=== PATIENT | male | born 1980 | race Caucasian/White ===

== ENCOUNTER 2016-08-01 09:17 | Emergency (ER) | payer OTHER ==
[2016-08-01 09:40] VITALS: BP 144/96; TEMP 97.7; O2SAT 97
--- NOTE | 2016-08-01 09:46 | ED.PDOC ---
History of Present Illness - General Chief Complaint: ENT Problem Stated Complaint: L ear discomfort Time Seen by Provider: 08/01/16 09:42 Source: patient, RN notes reviewed, Vital Signs reviewed Additional Information: Left ear discomfort worse over the past few days. Reports going swimming about 1 to 1 1/2 weeks ago. Denies fever. He does report muffled hearing from left ear. No reported drainage from left ear. - History of Present Illness Timing/Duration: gradual Severity: moderate EENT Location: ear (L) Prearrival Treatment: no prearrival treatment, over the counter meds - motrin Improving Factors: nothing Worsening Factors: nothing Associated Symptoms: other - muffled hearing. Otherwise, no fever, no drainage reported Allergies/Adverse Reactions: Allergies NO KNOWN ALLERGY Allergy (Verified 08/01/16 09:28) Home Medications: Ambulatory Orders Deniz/Poly/Hc Otic Susp [Cortisporin Otic Susp] 4 drop OTIC QID #1 bttl 08/01/16 Review of Systems - Review of Systems Constitutional: States: no symptoms reported EENTM: States: see HPI, ear pain Respiratory: States: no symptoms reported Cardiology: States: no symptoms reported Gastrointestinal/Abdominal: States: no symptoms reported Genitourinary: States: no symptoms reported Musculoskeletal: States: no symptoms reported Skin: States: no symptoms reported Neurological: States: no symptoms reported Endocrine: States: no symptoms reported Hematologic/Lymphatic: States: no symptoms reported Past Medical History (General) - Patient Medical History Hx Stroke: No Hx Congestive Heart Failure: No Hx Diabetes: No Hx MRSA: No - Vaccination History Hx Influenza Vaccination: Yes - 2016 Hx Pneumococcal Vaccination: No - Social History Hx Tobacco Use: No Family Medical History - Family History Father Family History: No Known Living Status: Still Living Physical Exam - Physical Exam General Appearance: Alert, No apparent distress, Well Developed, Well Groomed, Well Hydrated, Well Nourished Eye Exam: right other - mild injection right conjunctiva - no drainage Ear Exam: left ear: other - inflamed canal. no drainage Nasal Exam: normal inspection Throat Exam: normal mouth inspection, pharynx normal Neck: non-tender, full range of motion, supple, normal inspection Cardiovascular/Respiratory: regular rate, rhythm, normal peripheral pulses, normal breath sounds, no respiratory distress Abdominal Exam: non-tender, no organomegaly Neurologic: tube teller II-XII nml as tested, no motor/sensory deficits, alert, normal mood/affect, oriented x 3 Skin Exam: normal color Progress - Progress Progress: 08/01/16 09:58 History and exam consistent with moderate left otitis media. Will treat with topical antibiotic/anti-inflammatory for now. Ok for d/c home with return precautions. Departure - Departure Clinical Impression: Left otitis externa Qualifiers: Otitis externa type: swimmer's ear Chronicity: acute Qualified Code(s): H60.332 - Swimmer's ear, left ear Time of Disposition: 09:52 Disposition: Discharge to Home or Self Care Condition: Good Departure Forms: ED Discharge - Pt. Copy, Patient Portal Self Enrollment Instructions: DI for Otitis Externa Prescriptions: Deniz/Poly/Hc Otic Susp [Cortisporin Otic Susp] 4 drop OTIC QID #1 bttl Home Medications: Ambulatory Orders Deniz/Poly/Hc Otic Susp [Cortisporin Otic Susp] 4 drop OTIC QID #1 bttl 08/01/16 Additional Instructions: Ok to take over the counter ibuprofen/motrin/advil for pain - follow label instructions. Use antibiotic drops as prescribed. Return to ER or go to primary care if unimproved in 7 to 10 days.
== END 2016-08-01 10:00 | disposition home or self-care (01) ==
LOC: ER 09:17
DX: H60.332 Swimmer's ear, left ear (principal)

== ENCOUNTER → 2018-03-21 | Outpatient (CLI) | payer OTHER ==
--- NOTE | 2018-03-21 12:02 | MRI ---
EXAM DESCRIPTION: Shoulder,Right: Magnetic Resonance Imaging. CLINICAL HISTORY: G54.9 COMPARISON: MRI scan cervical spine on the same visit. TECHNIQUE: Multiplanar, high-field MRI, multiple sequences, without contrast, right shoulder. FINDINGS: Fluid signal involving the bursal surface of the anterior insertion of the supraspinatus tendon and the undersurface of the more posterior tendon fibers. Not full-thickness. Also edema in the mid tendon, but not in the musculotendinous junction. Minimal edema in the subacromial-subdeltoid bursa. Edema in the undersurface of the distal and infraspinatus tendon, anteriorly, as well as along the inferior undersurface of the mid tendon. No muscle atrophy. No abnormal marrow signal in the humeral head. Effusion in the AC joint capsule. Minimal subchondral bone changes distal right clavicle. Expansion of the inferior joint capsule impressing on the musculotendinous junction of the supraspinatus. Mild downsloping of the lateral acromion. Type I-2 curvature of the acromion. Coracoid ligaments are intact. Minimal fluid in the subcoracoid bursa. Fluid in the bicipital labral anchor. Anterior labral location. Abnormal fluid signal in the labrum posterior to the anchor. Minimal flattening of the coracoacromial arch. Intermediate signal in the posterior inferior glenoid labrum. No subchondral bone changes in the glenohumeral joint. Minimal effusion. Bicipital labral anchor is intact; long head biceps tendon within the bicipital groove. IMPRESSION: 1. Partial-thickness bursal surface tear of the anterior fibers of the right supraspinatus tendon insertion with minimal edema in the mid tendon. Partial-thickness undersurface insertion tear of the infraspinatus tendon. Minimal edema in the subacromion subdeltoid bursa. 2. Arthrosis in the right AC joint with inferior capsule mildly impressing on the musculotendinous junction of the right supraspinatus. Minimal narrowing of the right supraspinatus tendon outlet and mild flattening of the coracoacromial arch. Minimal subcoracoid bursal effusion. 3. Small focal tears of the superior labrum posterior to the bicipital labral anchor which is anteriorly located. The anchor demonstrates moderate sprain at the attachment with normal signal in the long head biceps tendon. Minimal glenohumeral joint effusion. If these findings are discordant with clinical findings, consider MR or CT arthrography of the right shoulder. Electronically signed by: Elder Saba MD 03/21/2018 12:01 PM HOSPITAL LABORATORY TECHNICIAN
--- NOTE | 2018-03-21 13:55 | MRI ---
EXAM DESCRIPTION: Cervical Spine: MRI. CLINICAL HISTORY: 37 years Male G54.9 COMPARISON: Cervical TECHNIQUE: Multiplanar, high-field MRI, multiple sequences, non-contrast Cervical spine.. Technically difficult study due to patient swallowing and motion particularly affecting the axial sequences. FINDINGS: C3-4: Disc space preserved with minimal disc desiccation. Left uncinate spur and minimal facet arthrosis with moderate neural foraminal narrowing. Right neuroforamen is patent. Minimal canal narrowing. Negative right facet. C5-6: Disc desiccation with anterior bulging and minimal disc space loss. Posterior midline 4 mm protrusion with inferior extrusion 5 mm below the disc space abutting the ventral cord. Large bilateral uncinate spurs larger on the right with right paracentral 5.5 mm disc protrusion impressing the ventral cord and impinging the right C6 nerve. Right neural foraminal stenosis. Mild left neural foraminal stenosis. C6-7: Disc desiccation and 2 mm retrolisthesis. Minimal disc space loss. Posterior midline bulge not abutting the cord. Mild canal narrowing. Right side Modic type II endplate reactive changes with uncinate spur and disc osteophyte complex encroaching on the right foramen with moderate neural foraminal stenosis. Minimal narrowing left neural foramen. Facets are unremarkable. Normal signal in the remaining discs with no bulging. Disc spaces preserved. Canal and neural foramina are patent. Facet joints are unremarkable Spinal alignment slightly kyphotic in the mid spine. No cord compression or cord edema. Atlantoaxial joint negative.. Base of the cerebellar tonsils is above the foramen magnum. Paravertebral soft tissues negative.. Vertebral bodies are not compressed at any level. Normal marrow signal in the remaining vertebral bodies and the posterior elements. IMPRESSION: 1. Posterior midline protrusion of C5-6 disc abutting the cord with inferior extrusion below the disc space. Right paracentral disc osteophyte complex herniation with right foraminal stenosis. Correlate for right C6 radiculopathy. Disc osteophyte complex encroaching on the left foramen with neural foraminal stenosis. Correlate for left C6 radiculopathy. 2. Disc desiccation 2 mm retrolisthesis. Moderate spondylosis C6-7. Right side disc osteophyte complex with moderate neural foraminal stenosis. Correlate for right C7 radiculopathy. 3. Moderate narrowing of the left C3-4 neural foramen by uncinate spur. Other findings as noted above. Electronically signed by: Elder Saba MD 03/21/2018 1:53 PM [facility]
== END ==
LOC: MRI 08:10
DX: G54.9 Nerve root and plexus disorder, unspecified (principal); M50.222 Other cervical disc displacement at C5-C6 level; M50.323 Other cervical disc degeneration at C6-C7 level; M25.78 Osteophyte, vertebrae; M75.101 Unspecified rotator cuff tear or rupture of right shoulder, not specified as traumatic

== ENCOUNTER 2019-12-13 00:13 | Emergency (ER) | payer OTHER ==
[2019-12-13] MEDS ORDERED: MORPHINE SULFATE INJ 10 MG/ML VIAL IV ONE (00:36)
[2019-12-13] MEDS ORDERED: ONDANSETRON INJ 4 MG/2 ML VIAL IV ONE (00:36)
--- NOTE | 2019-12-13 00:39 | ED.PDOC ---
History of Present Illness - General Chief Complaint: Abdominal Pain Stated Complaint: abdominal pain Time Seen by Provider: 12/13/19 00:17 Information Source: patient, family Exam Limitations: no limitations - History of Present Illness Initial Comments: Pt says he had very acute onset of RLQ abd pain ~45 min BELT NOTCH[employer]. Pt says he completely normal prior to that. He denies N/V/diarrhea, constipation, urinary symptoms, testicle pain or swelling, F/C. Pt denies h/o kidney stones. Abdominal Pain Onset Location: RLQ Pain Radiation: no radiation Quality: moderate, severe Timing/Duration: 1/2 hour, 1 hour Improving Factors: immobilization Worsening Factors: movement Associated Symptoms: denies symptoms Review of Systems - Review of Systems Constitutional: States: no symptoms reported EENTM: States: no symptoms reported Respiratory: States: no symptoms reported Cardiology: States: no symptoms reported Gastrointestinal/Abdominal: States: see HPI, abdominal pain. Denies: constipation, diarrhea, nausea, vomiting, other Genitourinary: States: no symptoms reported Musculoskeletal: States: no symptoms reported Skin: States: no symptoms reported Neurological: States: no symptoms reported Endocrine: States: no symptoms reported Hematologic/Lymphatic: States: no symptoms reported Past Medical History (General) - Patient Medical History Hx Seizures: No Hx Stroke: No Hx Dementia: No Hx Asthma: No Hx of COPD: No Hx Cardiac Disorders: No Hx Congestive Heart Failure: No Hx Pacemaker: No Hx Hypertension: No Hx Thyroid Disease: No Hx Diabetes: No Hx Gastroesophageal Reflux: No Hx Renal Disease: No Hx Cancer: No Hx of HIV: No Hx Hepatitis C: No Hx MRSA: No - Vaccination History Hx Tetanus, Diphtheria Vaccination: No Hx Influenza Vaccination: No Hx Pneumococcal Vaccination: No Immunizations Up to Date: No - Social History Hx Tobacco Use: No Hx Alcohol Use: No Hx Substance Use: No Hx Substance Use Treatment: No Hx Depression: No Family Medical History - Family History Father Family History: No Known Living Status: Still Living Physical Exam - Physical Exam General Appearance: Alert Eyes, Ears, Nose, Throat Exam: PERRL/EOMI Neck: full range of motion Respiratory: chest non-tender, lungs clear, normal breath sounds, no respiratory distress, no accessory muscle use Cardiovascular/Chest: normal peripheral pulses, regular rate, rhythm, no edema, no gallop Gastrointestinal/Abdominal: normal bowel sounds, soft, tenderness - RLQ Neurologic: alert, normal mood/affect, oriented x 3 Skin Exam: normal color, warm/dry Lymphatic: no adenopathy Progress - Progress Progress: 12/13/19 00:36 Hold Metformin x 48Hrs [id number] Laboratory Results WBC 12.6 K/mm3 (4.8-10.8) H 12/13/19 00:30 RBC 5.00 M/mm3 (4.70-6.10) 12/13/19 00:30 Hgb 14.7 gm/dL (14.0-18.0) 12/13/19 00:30 Hct 43.4 % (42.0-52.0) 12/13/19 00:30 MCV 86.7 fl (80.0-94.0) 12/13/19 00:30 MCH 29.5 pg (27.0-31.0) 12/13/19 00:30 MCHC 34.0 g/dL (33.0-37.0) 12/13/19 00:30 RDW 13.6 % (11.5-14.5) 12/13/19 00:30 Plt Count 274 K/mm3 (130-400) 12/13/19 00:30 MPV 8.9 fl (7.40-10.4) 12/13/19 00:30 Absolute Neuts (auto) 6.50 K/uL (1.8-6.8) 12/13/19 00:30 Absolute Lymphs (auto) 4.30 K/uL (1.0-3.4) H 12/13/19 00:30 Absolute Monos (auto) 0.90 K/uL (0.2-0.8) H 12/13/19 00:30 Absolute Eos (auto) 0.80 K/uL (0.0-0.4) H 12/13/19 00:30 Absolute Basos (auto) 0.10 K/uL (0.0-0.1) 12/13/19 00:30 Neutrophils % 51.6 % (42.0-78.0) 12/13/19 00:30 Lymphocytes % 34.3 % (20.0-50.0) 12/13/19 00:30 Monocytes % 6.8 % (2.0-9.0) 12/13/19 00:30 Eosinophils % 6.4 % (1.0-5.0) H 12/13/19 00:30 Basophils % 0.9 % (0.0-2.0) 12/13/19 00:30 Sodium 135 mmol/L (135-145) 12/13/19 00:42 Potassium 3.8 mmol/L (3.6-5.0) 12/13/19 00:42 Chloride 101 mmol/L (101-111) 12/13/19 00:42 Carbon Dioxide 22 mmol/L (21-31) 12/13/19 00:42 Anion Gap 15.8 (12-18) 12/13/19 00:42 BUN 9 mg/dL (7-18) 12/13/19 00:42 Creatinine 0.89 mg/dL (0.6-1.3) 12/13/19 00:42 BUN/Creatinine Ratio 10.1 (10-20) 12/13/19 00:42 Random Glucose 107 mg/dL (70-105) H 12/13/19 00:42 Serum Osmolality 269.3 mOsm/L (275-295) L 12/13/19 00:42 Lactic Acid 1.4 mmol/L (0.5-2.2) 12/13/19 00:42 Calcium 8.8 mg/dL (8.4-10.2) 12/13/19 00:42 Total Bilirubin 0.6 mg/dL (0.2-1.0) 12/13/19 00:42 AST 21 IU/L (10-42) 12/13/19 00:42 ALT 20 IU/L (10-60) 12/13/19 00:42 Alkaline Phosphatase 70 IU/L (42-121) 12/13/19 00:42 Serum Total Protein 7.4 gm/dL (6.4-8.2) 12/13/19 00:42 Albumin 4.3 g/dl (3.2-5.5) 12/13/19 00:42 Globulin 3.1 gm/dL (2.3-3.5) 12/13/19 00:42 Albumin/Globulin Ratio 1.4 (1.1-1.9) 12/13/19 00:42 Urine Color Yellow (Yellow) 12/13/19 01:05 Urine Appearance Sl cloudy (Clear) 12/13/19 01:05 Urine pH 7.0 (4.5-7.8) 12/13/19 01:05 Ur Specific Mott 1.020 (1.005-1.030) 12/13/19 01:05 Urine Protein Negative mg/dL 12/13/19 01:05 Urine Glucose (UA) Negative mg/dL (Negative) 12/13/19 01:05 Urine Ketones Negative mg/dL (NEGATIVE) 12/13/19 01:05 Urine Blood Moderate (Negative) H 12/13/19 01:05 Urine Nitrite Negative 12/13/19 01:05 Urine Bilirubin Negative (NEGATIVE) 12/13/19 01:05 Urine Urobilinogen 1.0 mg/dL (0.2-1.0) 12/13/19 01:05 Ur Leukocyte Esterase Negative (Negative) 12/13/19 01:05 Urine RBC 20-30 /hpf H 12/13/19 01:05 Urine WBC 1-3 /hpf 12/13/19 01:05 Ur Epithelial Cells 0 /hpf 12/13/19 01:05 Urine Bacteria 0 12/13/19 01:05 Urine Mucus Small 12/13/19 01:05 PROCEDURE: CT Abdomen and Pelvis With Intravenous Contrast CLINICAL INDICATION: The patient is 39 years old and is Male; abd pain TECHNIQUE: Axial computed tomography images of the abdomen and pelvis with intravenous contrast. Sagittal and coronal reformatted images were created and reviewed. This CT exam was performed using one or more of the following dose reduction techniques: automated exposure control, adjustment of the mA and/or kV according to patient size, and/or use of iterative reconstruction technique. DLP: 1291 mGy*cm COMPARISON: None. FINDINGS: LUNG BASES: Lung bases are clear. HEART: Visualized heart is normal. ABDOMEN: LIVER: Unremarkable. No mass. GALLBLADDER AND BILE DUCTS: Unremarkable. No calcified stones. No ductal dilation. PANCREAS: Unremarkable. No mass. No ductal dilation. SPLEEN: Unremarkable. No splenomegaly. ADRENALS: Unremarkable. No mass. KIDNEYS AND URETERS: Mild prominence of the right renal collecting system and ureter. Mild perinephric stranding. STOMACH AND BOWEL: Unremarkable. No obstruction. No mucosal thickening. PELVIS: APPENDIX: The appendix is seen and is within normal limits. BLADDER: Punctate calcification in the urinary bladder. REPRODUCTIVE: Unremarkable as visualized. ABDOMEN and PELVIS: INTRAPERITONEAL SPACE: Un remarkable. No free air. No significant fluid collection. BONES/JOINTS: Lower lumbar degenerative changes, worse at L4-5. No acute fracture. No dislocation. SOFT TISSUES: Unremarkable. VASCULATURE: Unremarkable. No abdominal aortic aneurysm. LYMPH NODES: Unremarkable. No enlarged lymph nodes. IMPRESSION: Constellation of findings suggestive of recently passed renal stone with punctate stone in the urinary bladder and mild right hydronephrosis and hydroureter. Electronically signed by: Benjie Can DO 12/13/2019 1:28 AM CDT Pt appears comfortable. He says pain is down to 3-4/10. I discussed results with him. He has no concerns about being d/c home. Departure - Departure Clinical Impression: Ureterolithiasis, Microscopic hematuria, Degenerative joint disease (DJD) of lumbar spine Time of Disposition: 01:40 Disposition: Discharge to Home or Self Care Condition: Fair Departure Forms: ED Discharge - Pt. Copy, Patient Portal Self Enrollment Instructions: DI for Abdominal Pain-Adult, Kidney Stones in Adults Diet: resume usual diet Referrals: RODRIGUEZ ARAUJO [Referring] - 1-2 Weeks Prescriptions: Acetaminophen W/ Codeine [Tylenol/Codeine #4 300-60 mg] 1 ea PO Q4HR #30 tab Ondansetron HCl [Zofran] 4 mg PO Q6HRS #14 tab Ketorolac Tromethamine [Toradol Tabs] 10 mg PO Q8HRS #20 tab Tamsulosin HCl [Flomax] 0.4 mg PO DAILY #14 cap Home Medications: Ambulatory Orders Deniz/Poly/Hc Otic Susp [Cortisporin Otic Susp] 4 drop OTIC QID #1 bttl 08/01/16 Acetaminophen W/ Codeine [Tylenol/Codeine #4 300-60 mg] 1 ea PO Q4HR #30 tab 12/13/19 Ketorolac Tromethamine [Toradol Tabs] 10 mg PO Q8HRS #20 tab 12/13/19 Ondansetron HCl [Zofran] 4 mg PO Q6HRS #14 tab 12/13/19 Tamsulosin HCl [Flomax] 0.4 mg PO DAILY #14 cap 12/13/19
--- NOTE | 2019-12-13 01:29 | CT ---
PROCEDURE: CT Abdomen and Pelvis With Intravenous Contrast CLINICAL INDICATION: The patient is 39 years old and is Male; abd pain TECHNIQUE: Axial computed tomography images of the abdomen and pelvis with intravenous contrast. Sagittal and coronal reformatted images were created and reviewed. This CT exam was performed using one or more of the following dose reduction techniques: automated exposure control, adjustment of the mA and/or kV according to patient size, and/or use of iterative reconstruction technique. DLP: 1291 mGy*cm COMPARISON: None. FINDINGS: LUNG BASES: Lung bases are clear. HEART: Visualized heart is normal. ABDOMEN: LIVER: Unremarkable. No mass. GALLBLADDER AND BILE DUCTS: Unremarkable. No calcified stones. No ductal dilation. PANCREAS: Unremarkable. No mass. No ductal dilation. SPLEEN: Unremarkable. No splenomegaly. ADRENALS: Unremarkable. No mass. KIDNEYS AND URETERS: Mild prominence of the right renal collecting system and ureter. Mild perinephric stranding. STOMACH AND BOWEL: Unremarkable. No obstruction. No mucosal thickening. PELVIS: APPENDIX: The appendix is seen and is within normal limits. BLADDER: Punctate calcification in the urinary bladder. REPRODUCTIVE: Unremarkable as visualized. ABDOMEN and PELVIS: INTRAPERITONEAL SPACE: Unremarkable. No free air. No significant fluid collection. BONES/JOINTS: Lower lumbar degenerative changes, worse at L4-5. No acute fracture. No dislocation. SOFT TISSUES: Unremarkable. VASCULATURE: Unremarkable. No abdominal aortic aneurysm. LYMPH NODES: Unremarkable. No enlarged lymph nodes. IMPRESSION: Constellation of findings suggestive of recently passed renal stone with punctate stone in the urinary bladder and mild right hydronephrosis and hydroureter. Electronically signed by: Benjie Can DO 12/13/2019 1:28 AM CDT
[2019-12-13 01:35] VITALS: TEMP 98.4
[2019-12-13] MEDS ORDERED: KETOROLAC TROMETHAMINE INJ 30 MG/ML VIAL IV ONE (01:38)
[2019-12-13 01:49] VITALS: BP 140/90; O2SAT 97
== END 2019-12-13 01:49 | disposition home or self-care (01) ==
LOC: ER 00:13
DX: N13.2 Hydronephrosis with renal and ureteral calculous obstruction (principal); M47.817 Spondylosis without myelopathy or radiculopathy, lumbosacral region
CPT/HCPCS: 36415; 74177; 80053; 81001; 83605; 85025; J1885; J2270; J2405